=== PATIENT | female | born 1940 | race Caucasian/White ===

== ENCOUNTER → 2016-07-17 | Outpatient (CLI) | payer MEDICARE, BC ==
[~2016-07-17] MED LIST: ASPIRIN81 M1 PO; LEVOTHYROXINE50 MCG PO; LISINOPRIL10 MG PO; LOSARTAN POTASS50 MG PO; PERCOCET5/325 PO; SYNTHROID; SYNTHROID25 MCG PO; ZOCOR20 MG PO; [UNRECOGNIZED DRUG - OTHER] PO
--- NOTE | ~2016-07-17 | MY11 ---
[facility] A Service of [facility] / [facility] RADIOLOGY TEXT RESULTS PATIENT: MARIETTA JARA LOCATION: [facility] : 44 UNIT #: [id number] AGE: [address]: Rachel Jorgensen MD SEX: F ORDER DR: [id number] [facility] [address] [place], [place] [address] [id number] O MR#: [id number] #: [id number] NAME: MARIETTA JARA. : 1940 SEX: F STUDY DATE/TIME: 07/17/2016 10:05 UNIT: [facility] ROOM: STUDY DESCRIPTION: MY Mammogram Screening Dig [place] Attending Physician: Rachel Jorgensen M.D. Referring Physician: Rachel Jorgensen M.D. Ordering Physician: Rachel Jorgensen M.D. Primary Care Physician: Rachel Jorgensen M.D. MEDICAL IMAGING REPORT This report is preliminary unless electronic signature is present EXAM Digital screening mammogram 07/17/2016. HISTORY A 75-year-old woman, positive family history, sister. Prior excisional biopsy left breast. Annual screening COMPARISON STUDIES 02/27/2011, 03/02/2012, 08/12/2013 and 11/17/2014. Digital imaging of each breast was completed utilizing standard craniocaudal and mediolateral-oblique projections. Review and interpretation of digital mammograms include a second review in conjunction with FDA-approved CAD device. There is an overall increase in the parenchymal presentation bilaterally with a generalized fibronodular pattern in each breast. There are no breast masses and I see no asymmetry in the parenchymal presentation. There are no suspicious microcalcifications and I see no architectural disturbance. IMPRESSION Benign mammogram. One-year followup recommended. Patients over the age of 40 are entered into a reminder system with target due date for the next mammogram. A result letter will also be sent to the patient. BIRADS: 2 Benign finding Dictated by... Vargas Nugent M.D. [facility] A Service [facility] RADIOLOGY TEXT RESULTS PATIENT: MARIETTA JARA LOCATION: [facility] : 44 UNIT #: [id number] AGE: [address]: Rachel Jorgensen MD SEX: F ORDER DR: THIS IS AN ELECTRONICALLY VERIFIED REPORT Vargas Nugent M.D. at 07/17/2016 1:09 PM Yuriy TD: 07/17/2016 12:42 JOB #: [id number] MEDICAL IMAGING REPORT Page 1 of 1 COPY
== END | disposition home or self-care (01) ==
LOC: CWCC 09:40
DX: Z12.31 Encounter for screening mammogram for malignant neoplasm of breast (principal); Z80.3 Family history of malignant neoplasm of breast; Z98.890 Other specified postprocedural states
CPT/HCPCS: G0202

== ENCOUNTER → 2017-01-08 | Outpatient (CLI) | payer MEDICARE, BC | END | disposition home or self-care (01) | LOC: CLAB 09:14 | DX: E89.0 Postprocedural hypothyroidism (principal) | CPT/HCPCS: 36415; 84443 ==